=== PATIENT | female | born 1940 | race Caucasian/White ===

== ENCOUNTER → 2016-07-06 | Outpatient (CLI) | payer OTHER, MEDICARE ==
[~2016-07-06] VITALS: Ht 170.2 cm; Wt 93.4 kg
[~2016-07-06] MED LIST: ATORVASTATIN CA40 MG PO; CALCIUM 600 +1 EA12 PO; CYCLOBENZAPRINE5 MG PO; CYMBALTA60 MG PO; FISH OIL 1,0001 EAC5 PO; HEARTBURN RELI150 M1 PO; LEVOTHYROXINE0.05 MG; MULTIVITAMINS1 EAC7 PO; NEXIUM 40 MG CA40 M1 PO; PERCOCET 5-3251 EACH; PRILOSEC40 MG PO; PROPRANOLOL 8080 MG PO; PROTONIX40 M1 PO; SIMVASTATIN20 MG PO; TOPAMAX 100 MG100 MG; ULTRAM 50MG TAB50 MG PO; VITAMIN D1000 UNI1 PO; VITAMIN E400 UNI7 PO; VOLTAREN GEL 1100 G1 TOP; ZANAFLEX4 MG PO
--- NOTE | ~2016-07-06 | HPC ---
[facility] [place] [address] [address] PAIN MANAGEMENT CONSULTATION Name: ENRIQUEREBECCA D [facility] [id number] Admission: 07/06/16 Attend Phys: Zach Tenorio DO Discharge: Date of : 42 Report #: [id number] THIS REPORT FOR: //name// CC: Urszula Tenorio HISTORY OF PRESENT ILLNESS: The patient is a very pleasant 75-year-old female, I last saw her in April when we did a spinal cord stimulator trial with a high-frequency Nevro stimulator with dramatic improvement of the pain. The patient returns to the pain clinic today having had implant by Dr. James Coburn, 06/05/2016. The patient notes for the first few days, she did well, but pain has become more problematic, back and bilateral legs. She presents to the pain clinic today. She is very frustrated. She rates her pain a "9-10" on a 0-10 visual analog scale. Complaining of pain in low back and both legs, sharp and aching. It is significantly interfering with function. She states she had gone to the grocery store after walking for several hours and it took her the rest of the day to "recover". The patient does deny any bowel or bladder continence changes. She denies any systemic illness or concerns. PHYSICAL EXAMINATION: GENERAL: Shows a 75-year-old female, BMI is 32.3 kilograms per meter squared. VITAL SIGNS: Stable as noted in the EMR. She is afebrile. SKIN: The surgical incision sites look like they are healing very well. No trace of infection or warmth or swelling noted. I did take the liberty of taking the patient to the fluoroscopy suite. The leads were visualized. The leads are in the posterior aspect of the spinal canal. One lead is up to T8, the second lead is from about T9 down. They do cover both the T8-T9 and T9-T10 interspaces well. We did have the [employer] representatives here today. They spent a good deal of time reprogramming the device. I spent approximately 25 minutes with the patient personally, counseling the patient and supporting her. She is frustrated and I encouraged her that the leads look good, that the surgery was successful and we will work to recapture better coverage for her. Medicines were reconciled today. She does use tizanidine and tramadol for pain. She does not require those prescriptions. The patient was discharged in good and stable condition after a 25-minute visit. Followup is simply as needed. <ELECTRONICALLY SIGNED> By: Zach Tenorio DO 07/07/16 0925 [id number] Zach Tenorio DO /nt
[2016-07-06 13:38] VITALS: BP 109/65
== END ==
LOC: PAIN 07:41
DX: G89.29 Other chronic pain (principal)

== ENCOUNTER → 2016-10-16 | Outpatient (CLI) | payer OTHER, MEDICARE ==
[~2016-10-16] VITALS: Ht 170.2 cm; Wt 92.5 kg
--- NOTE | ~2016-10-16 | HPC ---
[facility] [address] [place] [address] PAIN MANAGEMENT CONSULTATION Name: REBECCA NUNEZ Room #: REG Earline Moctezuma#: [id number] Admission: 10/16/16 Attend Phys: Zach Tenorio DO Discharge: Date of : 41 Report #: [id number] THIS REPORT FOR: //name// CC: BUZZ Tenorio The patient is a very pleasant 75-year-old female had a dorsal column stimulator implant on 06/05/2016, has done well with radicular pain primarily low back, right buttock and leg. Returns to pain clinic today with a new complaint. She developed burning dysesthesia left low back, buttock, anterior thigh. It appears to be at L1 distribution. It sounds very much like neuropathic pain (herpetic zoster ?). Mitigating factors are that there are no skin lesions and she did get her herpes zoster vaccination though, as we know this does not preclude development of shingles, but does make it less likely, unfortunately does make this sequelae less severe. PHYSICAL EXAMINATION: Shows no skin changes. Does have a light touch allodynia and hyperpathia. Passive rotation of the hip is unremarkable. Gait is tandem. ASSESSMENT: Neuropathic pain in the left L1 distribution. RECOMMENDATIONS: The patient has recently started on prophylactic course of an antibiotic, with neuropathic pain we elected to start her on sample course of 50 mg Lyrica (sample pack with #21 tablets given). Have take one at bedtime. I will see her back in 4 weeks if symptoms do not resolve. Also elected to move forward with epidural injection under fluoroscopy today at L2-L3 left of midline. This should help with any sympathetically mediated pain component. We talked about the benefits of possibly starting the patient on a 5-day course of antiviral agent, but given the current bacterial agent (Bactrim DS b.i.d.), I will postpone that intervention. ASSESSMENT: Symptomatic lumbar radiculopathy. PROCEDURE NOTE: Lumbar epidural injection under fluoroscopy. PROCEDURE NOTE: After both written and informed consent to include risk of spinal cord damage, increased pain, weakness and dural puncture, the patient was taken to the fluoroscopy suite, placed in the prone position. After sterile prep and drape, a skin wheal with lidocaine was raised. A 22-gauge epidural Tuohy needle was inserted in the midline at L2-3 with good loss to resistance. Negative aspiration for cerebrospinal fluid or blood was noted. Then 1 mL of Omnipaque under biplanar fluoroscopy showed good spread within the epidural space. This was followed with 80 mg of triamcinolone plus 1 mL of 1.5% preservative-free Xylocaine, 0.5 mL Xylocaine was then injected to flush the [address] [address] PAIN MANAGEMENT CONSULTATION Name: REBECCA NUNEZ Room #: REG CL Jose Elias#: [id number] Admission: 10/16/16 Attend Phys: Zach Tenorio DO Discharge: Date of : 42 Report #: [id number] needle; it was removed. The patient was monitored for an appropriate period of time and discharged in good and stable condition. <ELECTRONICALLY SIGNED> By: Zach Tenorio DO 10/18/16 0801 1348 1432 Zach Tenorio DO /nt
[2016-10-16 13:17] VITALS: BP 125/66
== END | disposition home or self-care (01) ==
LOC: PAIN 06:45
DX: M54.16 Radiculopathy, lumbar region (principal); G89.29 Other chronic pain; Z88.8 Allergy status to other drugs, medicaments and biological substances; Z98.890 Other specified postprocedural states

== ENCOUNTER → 2016-11-06 | Outpatient (CLI) | payer OTHER, MEDICARE ==
[~2016-11-06] VITALS: Ht 170.2 cm; Wt 92.1 kg
[~2016-11-06] MED LIST changes: +NEURONTIN 300300 M1 PO; +VITAMIN B122500 MCG PO
--- NOTE | ~2016-11-06 | HPC ---
[facility] [address] [place] [address] PAIN MANAGEMENT CONSULTATION Name: REBECCA NUNEZ Room #: REG [facility] Jose Elias#: [id number] Admission: 11/06/16 Attend Phys: Zach Tenorio DO Discharge: Date of : 41 Report #: [id number] THIS REPORT FOR: //name// CC: Urszula Tenorio HISTORY OF PRESENT ILLNESS: The patient is a 76-year-old female being treated for lumbar radiculopathy, axial back pain, neuropathic pain. Last seen in pain clinic on 10/16/2016. She progressed to have Nevro spinal cord stimulator implant on 06/05/2016 with very good improvement of back pain. She was seen earlier this month with left L1 nerve pain, felt to be early on presentation of herpetic zoster. I did an epidural injection in the upper lumbar area. We will start the patient on a short course of antiviral and gave her Lyrica samples h.s. He returns to pain clinic today, noting that the aforementioned left L1 distribution herpetic zoster pain has resolved. She thinks that the Lyrica is efficacious, but her insurance will not pay for it. She is complaining today of a new complaint, that being the left "sciatic" type pain. Pain in the left hip, posterior thigh down to the calf. She notes pain is 7-8 on a VAS. Denies antecedent trauma or overuse. Notes pain is exacerbated with sitting, standing, even lying down. PHYSICAL EXAMINATION: Shows 76-year-old female, BMI is 31.8 kilograms per meter squared. She continues to smoke and was counseled regarding same. Vital signs stable as noted in the EMR. Lumbar flexion is good to about 90 degrees. Has decreased objective strength to left lower extremity flexion and plantar flexion. Patellar reflexes are symmetric. Achilles reflex is absent on the left. Straight leg raise is equivocal at 30 degrees. Diffuse tenderness across the low back. Spinal cord stimulator IPG is in the left gluteal area. ASSESSMENT: 1. Symptomatic lumbar radiculopathy, acute exacerbation of left L5 radicular pattern "sciatic" distribution. 2. Neuropathic pain and axial back pain, generally controlled with spinal cord stimulator. RECOMMENDATION: 1. Discussion with the patient today about therapeutic options. The Lyrica had helped with her prior herpetic zoster type pain. She does have ongoing nerve root irritation with "sciatic" type symptoms. I will trial the patient on gabapentin 300 mg 1-2 at bedtime. Discontinue Lyrica, she ran out of samples (1-2 days ago). 2. Lumbar epidural injection under fluoroscopy today, left midline at L5-S1. 3. Follow up in 3 weeks to reevaluate. If symptoms continue, we will ask [employer] telesales representative to be available for consideration [place] [id number] PAIN MANAGEMENT CONSULTATION Name: REBECCA NUNEZ Room #: REG BOBBI Moctezuma#: [id number] Admission: 11/06/16 Attend Phys: Zach Tenorio DO Discharge: Date of : 42 Report #: [id number] I did today evaluate the leads under fluoroscopy. Leads appear to be unchanged from prior image I had taken on 05/08/2016. ASSESSMENT: Symptomatic lumbar radiculopathy. PROCEDURE: Lumbar epidural injection under fluoroscopy. PROCEDURE NOTE: After both written and informed consent to include risk of spinal cord damage, increased pain, weakness and dural puncture, the patient was taken to the fluoroscopy suite, placed in the prone position. After sterile prep and drape, a skin wheal with lidocaine was raised. A 22-gauge epidural Tuohy needle was inserted in the midline at L5-S1 with good loss to resistance. Negative aspiration for cerebrospinal fluid or blood was noted. Then 1 mL of Omnipaque under biplanar fluoroscopy showed good spread within the epidural space. This was followed with 80 mg of triamcinolone plus 1 mL of 1.5% preservative-free Xylocaine, 0.5 mL Xylocaine was then injected to flush the needle; it was removed. The patient was monitored for an appropriate period of time and discharged in good and stable condition. By: 1219 [id number] Zach Tenorio DO /nt
[2016-11-06 10:46] VITALS: BP 117/79
== END | disposition home or self-care (01) ==
LOC: PAIN 07:06
DX: M54.16 Radiculopathy, lumbar region (principal); G62.9 Polyneuropathy, unspecified